=== PATIENT | female | born 1990 ===

== ENCOUNTER 2016-07-18 22:55 | Emergency (ER) | payer OTHER ==
[2016-07-18 23:03] VITALS: BP 113/65; PULSE 76; RESP 16; TEMP 98.3; O2SAT 100
[2016-07-18] MEDS ORDERED: Sodium Chloride 0.9% 1,000 ML IV STA (23:18)
--- NOTE | 2016-07-18 23:23 | ED PDOC ---
HPI: General Adult Time Seen by Provider: 07/18/16 23:09 Chief Complaint (Nursing): Abdominal Pain History Per: Patient Additional Complaint(s): Pt. states since 1100 today pt. has had non-bloody vomiting and non-bloody watery diarrhea. Symptoms are associated with crampy b/l lower abdominal pain. Denies fever, melena, hematemesis, BRBPR, hematochezia, hematuria, dysuria, frequency, previous abdominal surgery, sick contacts, recent travel. Past Medical History Reviewed: Historical Data, Nursing Documentation, Vital Signs Vital Signs: Last Vital Signs Temp 98.3 F 07/18/16 23:00 Pulse 76 07/18/16 23:00 Resp 16 07/18/16 23:00 BP 113/65 07/18/16 23:00 Pulse Ox 100 07/19/16 00:00 - Family History Family History: States: No Known Family Hx - Allergies Allergies/Adverse Reactions: Allergies Allergy/AdvReac Type Severity Reaction Status Date / Time No Known Allergies Allergy Verified 07/18/16 23:00 Review of Systems ROS Statement: Except As Marked, All Systems Reviewed And Found Negative Gastrointestinal: Positive for: Nausea, Vomiting, Abdominal Pain, Diarrhea Physical Exam - Reviewed Nursing Documentation Reviewed: Yes Vital Signs Reviewed: Yes - Physical Exam Appears: Positive for: Well, Non-toxic, No Acute Distress Head Exam: Positive for: ATRAUMATIC, NORMAL INSPECTION, NORMOCEPHALIC Skin: Positive for: Normal Color, Warm. Negative for: Rash Eye Exam: Positive for: Normal appearance, EOMI, PERRL ENT: Positive for: TM Is/Are (non-erythematous, non-bulging b/l), Other (mucous membranes are dry). Negative for: Pharyngeal Erythema, Tonsillar Exudate, Tonsillar Swelling Neck: Positive for: Normal, Painless ROM Cardiovascular/Chest: Positive for: Regular Rate, Rhythm Respiratory: Positive for: CNT, Normal Breath Sounds Gastrointestinal/Abdominal: Positive for: Normal Exam, Bowel Sounds, Soft, Other (negative psoas and obturator sign). Negative for: Tenderness (to deep palpation) Back: Positive for: Normal Inspection. Negative for: L CVA Tenderness, R CVA Tenderness Extremity: Positive for: Normal ROM Neurologic/Psych: Positive for: Alert, Oriented. Negative for: Aphasia, Facial Droop - ECG O2 Sat by Pulse Oximetry: 100 - Progress ED Course And Treament: Labs ordered. IV NS bolus x 1 given. Pepcid 20mg IV, bentyl 20mg PO, zofran 4mg IV given. Disposition - Clinical Impression Clinical Impression: Gastroenteritis - Patient ED Disposition Is Patient to be Admitted: Transfer of Care (Signed out to Yudi SCHULER pending lab results and final disposition.) - Disposition Referrals: Marisa Monet DO [Primary Care Provider] - Disposition Time: 00:00 Condition: STABLE
[2016-07-19 00:09] LABS: BASO % 0.3 % (0.0-2.0); EOS % 0.1 % (0.0-4.0); HEMATOCRIT 39.7 % (34.0-47.0); LYMPH # 1.1 K/uL (1.0-4.3); MEAN CELL VOLUME 88.6 fl (81.0-99.0); MEAN CORPUSCULAR HEMOGLOBIN 29.5 pg (27.0-31.0); MEAN CORPUSCULAR HGB CONC 33.3 g/dL (33.0-37.0); MEAN PLATELET VOLUME 8.9 fl (7.2-11.7); MONO # 0.5 K/uL (0.0-0.8); MONO % 3.8 % (0.0-10.0); NEUT % 87.8 % (50.0-75.0); PLATELET COUNT 258 K/uL (130-400); RED CELL DISTRIBUTION WIDTH 13.2 % (11.5-14.5); WHITE BLOOD COUNT 13.7 K/uL (4.8-10.8)
[2016-07-19 00:31] LABS: RBC URINE 2 /hpf (0-3); URINE BILIRUBIN NEGATIVE (NEGATIVE); URINE BLOOD NEGATIVE (NEGATIVE); URINE COLOR AMBER (YELLOW); URINE GLUCOSE (UA) NEG (Normal); URINE KETONE 80 mg/dL (NEGATIVE); URINE LEUKOCYTE ESTERASE TRACE Leu/uL (Negative); URINE PROTEIN 30 mg/dL (NEGATIVE); URINE UROBILINOGEN 0.2-1.0 mg/dL (0.2-1.0); WBC URINE 4 /hpf (0-5)
[2016-07-19 00:49] LABS: ALB/GLOB RATIO 1.4 (1.0-2.1); ALKALINE PHOSPHATASE 61 U/L (38-126); ALT/SGPT 29 U/L (9-52); AST/SGOT 32 U/L (14-36); BILIRUBIN,TOTAL 0.9 mg/dl (0.2-1.3); BLOOD UREA NITROGEN 13 mg/dl (7-17); CALCIUM 9.4 mg/dL (8.4-10.2); CARBON DIOXIDE 24 mmol/L (22-30); CHLORIDE 103 mmol/L (98-107); GFR AFRICAN-AMERICAN > 60; GLUCOSE,RANDOM 104 mg/dL (65-105); LIPASE 21 U/L (23-300); POTASSIUM 3.8 MMOL/L (3.6-5.0); SODIUM 139 mmol/l (132-148); TOTAL PROTEIN 7.7 G/DL (6.3-8.2)
[2016-07-19 02:24] LABS: TOTAL CELLS COUNTED 100
[2016-07-19 02:25] LABS: EOSINOPHIL 1 % (0-7); NEUTROPHIL 87 % (42-75)
--- NOTE | 2016-07-19 02:25 | ED PDOC ---
- Laboratory Results Result Diagrams: 07/18/16 23:58 07/18/16 23:58 - ECG O2 Sat by Pulse Oximetry: 100 - Progress ED Course And Treament: Case endorsed to rewriter from Pina SCHULER pending labs, re-eval On re-eval, patient states she is feeling better. Tolerated PO. Patient educated on findings, discharged with rx Zofran, Pepcid, Bentyl. Advised fluids, bland diet. Follow up PMD 2-3 days. Return to ED for worsening/concerning symptoms. Disposition - Clinical Impression Clinical Impression: Gastroenteritis - POA Present On Arrival: None - Disposition Referrals: Marisa Monet DO [Primary Care Provider] - Disposition: Routine/Home Disposition Time: 02:23 Condition: IMPROVED Prescriptions: Dicyclomine [Bentyl] 20 mg PO TID #21 tab Famotidine [Pepcid] 20 mg PO BID #20 tab Ondansetron ODT [Zofran ODT] 4 mg PO Q8 PRN #10 odt PRN Reason: Nausea/Vomiting Instructions: Gastroenteritis (ED) Forms: [facility] School/Work Excuse
== END 2016-07-19 02:34 | disposition home or self-care (01) ==
LOC: H.ER 22:55
DX: K52.9 Noninfective gastroenteritis and colitis, unspecified (principal); R10.9 Unspecified abdominal pain

== ENCOUNTER 2016-08-20 18:38 | Emergency (ER) | payer OTHER ==
[2016-08-20 18:48] VITALS: BP 128/84; PULSE 66; RESP 18; TEMP 98.3; O2SAT 99
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
== END 2016-08-20 19:16 | disposition home or self-care (01) ==
LOC: H.ER 18:38
DX: S40.021A Contusion of right upper arm, initial encounter (principal); W22.8XXA Striking against or struck by other objects, initial encounter; Y92.410 Unspecified street and highway as the place of occurrence of the external cause